=== PATIENT | female | born 1940 | race Caucasian/White ===

== ENCOUNTER → 2018-12-16 | Outpatient (CLI) | payer MEDICARE ==
--- NOTE | 2018-12-16 16:56 | Diagnostic Imaging Report ---
TECHNIQUE: Magnetic resonance imaging of the LEFT SHOULDER was performed WITHOUT injected contrast. COMPARISON: None available. HISTORY: Pain FINDINGS: MUSCLES AND TENDONS: Rotator Cuff: Tendons: Full thickness tear of the supraspinatus tendon measuring approximately 1 cm in AP dimension. Retraction of the fibers approximately 2 cm. Muscles: No focal muscle atrophy. Biceps Tendon: The long head of the biceps tendon is within the bicipital groove. Intra-articular tendinopathy. GLENOHUMERAL JOINT: Joint effusion. Glenoid Labrum: Degenerative tearing of the superior labrum. Articular Cartilage: No focal defect. AC JOINT AND ACROMION: Mild hypertrophic degenerative changes of the acromioclavicular joint. Subacromial spurring. BONE: No acute fracture. SOFT TISSUES: Otherwise, the soft tissues appear unremarkable. IMPRESSION: Supraspinatus full-thickness tear with mild retraction. No atrophy. Long head biceps tendinopathy. Signed by: Dr. Gomez Pinzon M.D. on 12/16/2018 4:53 PM
== END ==
LOC: RAD 13:06
PROVIDERS: ATTEND Internal Medicine
DX: R42 Dizziness and giddiness (principal); R07.9 Chest pain, unspecified
CPT/HCPCS: 93306; 93880

== ENCOUNTER 2019-01-05 13:00 | Outpatient (RCR) | payer MEDICARE | END 2019-01-09 | LOC: OT 13:00 | PROVIDERS: ATTEND Specialist | DX: S46.022D Laceration of muscle(s) and tendon(s) of the rotator cuff of left shoulder, subsequent encounter (principal); M25.512 Pain in left shoulder; R53.1 Weakness ==

== ENCOUNTER 2019-01-11 12:24 | Outpatient (RCR) | payer MEDICARE | END 2019-02-09 | LOC: OT 12:24 | PROVIDERS: ATTEND Specialist | DX: S46.022A Laceration of muscle(s) and tendon(s) of the rotator cuff of left shoulder, initial encounter (principal); M25.512 Pain in left shoulder; R53.1 Weakness ==